=== PATIENT | male | born 1940 | race Caucasian/White ===

== ENCOUNTER → 2017-02-20 13:50 | Outpatient (CLI) | payer MEDICARE ==
[2016-09-10 09:28] VITALS: BMI 22.7
[~2017-02-20 13:50] MED LIST: ACETAMINOPHEN325 MG PO; ACETYLCYSTEINE; AMBIEN5 MG PO; ARTIFICIAL TEAR15 ML EACH EYE; ASCORBIC ACID500 MG PO; ATIVAN0.5 MG PO; ATIVAN2 MG/ML IM; ATROVENT 0.02%2.5 ML UPD; BACTROBAN 22 GM22 GM TP; BAYER CHEWABLE81 MG PO; BENADRYL INJ50 MG/ML IV; BENADRYL25 M1 PO; BOUDREAUXS113 GM TP; DEXTROSE 50%/WA50 M2 IV; FERROUS SULFAT325 MG PO; FLAGYL 500500 MG/100 PO; FLAGYL500 MG PO; FOLIC ACID1 MG PO; GABAPENTIN100 MG PO; GLUCAGEN1 MG/VIAL IM; GLUCAGEN1 MG/VIAL SC; HALDOL5 MG PO; HALDOL5 MG/ML IM; HUMALOG 30100 UNITS/ SC; IMODIUM2 MG PO; INDOCIN25 MG PO; INSTA-GLUCOSE31 GM PO; INVANZ1 G/VIAL IV; KLOR-CON 1010 MEQ PO; LASIX40 MG PO; LEVAQUIN 5500 MG/100 IV; LIDODERM 5 %1 PATCH TD; LISINOPRIL-HCTZ1 T13 PO; LISINOPRIL5 MG PO; LYRICA75 MG PO; MEGACE ES625 MG/5 M PO; MERREM 500 MG/500 MG IV; MILK OF MAGNESI30 ML PO; MIRALAX17 GM PO; MULTI-DAY VITAM1 TAB PO; MULTIPLE VITAMI1 TA1 PO; MYLANTA / MAALO30 ML PO; NAPROSYN500 MG PO; NIFEREX PO; NITROSTAT0.4 MG; NORCO 5/325 TAB1 TA1 PO; NUTRITIONAL SUPPLEMENT PO; NYSTATIN60 GM TP; OMEPRAZOLE20 M1 PO; PEPCID20 MG PO; PROTEIN LIQUID30 ML PO; PROTONIX I40 MG/VIAL IV; PROTONIX40 MG PO; QUESTRAN PACK4 G/PKT PO; REMERON15 MG PO; SALINE FLUSH10 ML IV; SILVASORB HYDRO45 GM TP; SYNTHROID100 MCG PO; SYNTHROID125 MCG PO; SYNTHROID150 MCG PO; TOPROL XL25 MG PO; TYLENOL325 MG PO; ULTRAM50 MG PO; VANCOMYCIN 750750 MG IV; VANCOMYCIN250 MG/51 PO; VITAMIN D2000 UNIT PO; ZESTORETIC 20/21 TAB PO; ZINC SULFATE 2220 MG PO; ZOFRAN4 MG PO; ZYLOPRIM100 MG PO
[2017-02-20 14:17] LABS: ANION GAP 22.9 mmol/L (8-16); CARBON DIOXIDE 16.1 mmol/L (21.0-32.0); CREATININE - SERUM 1.5 mg/dL (0.6-1.3)
== END | disposition home or self-care (01) ==
LOC: D.LABREF 13:50
PROVIDERS: Emergency Medicine
DX: R53.1 Weakness (principal); I11.9 Hypertensive heart disease without heart failure; I87.2 Venous insufficiency (chronic) (peripheral)

== ENCOUNTER → 2017-02-28 14:27 | Outpatient (CLI) | payer MEDICARE ==
[2016-09-10 09:28] VITALS: BMI 22.7
[2017-02-28 16:24] LABS: ANION GAP 17.9 mmol/L (8-16); CARBON DIOXIDE 20.2 mmol/L (21.0-32.0); POTASSIUM - SERUM 5.1 mmol/L (3.5-5.1)
== END | disposition home or self-care (01) ==
LOC: D.LABREF 14:27
PROVIDERS: Internal Medicine
DX: I50.22 Chronic systolic (congestive) heart failure (principal); N18.9 Chronic kidney disease, unspecified; I87.2 Venous insufficiency (chronic) (peripheral)

== ENCOUNTER 2017-03-24 14:37 | Inpatient (IN) | payer MEDICARE ==
[~2017-03-24] VITALS: Ht 172.7 cm; Wt 60.1 kg
[2017-03-24 16:17] LABS: BASOPHILS 0.2 % (0-2); EOSINOPHILS 0.8 % (0-7); HEMATOCRIT 37.3 % (42.0-54.0); HEMOGLOBIN 12.4 g/dL (13.5-17.5); IMMATURE GRANULOCYTES 0.2 % (0-5); LYMPHOCYTES 3.7 % (15-50); MCHC 33.2 g/dL (31.0-37.0); MCV 96.4 fL (80.0-100.0); MEAN PLATELET VOLUME 12.4 fL (7.4-10.4); MONOCYTES 7.6 % (2-11); NEUTROPHILS 87.5 % (40-80); PLATELET COUNT 137 10x3/uL (130-400); RBC 3.87 10x6/uL (4.20-6.10); RDW 15.9 % (11.5-14.5); WBC 11.3 10x3/uL (4.8-10.8)
[2017-03-24 16:26] LABS: ALBUMIN 3.5 g/dL (3.4-5.0); ANION GAP 14.7 mmol/L (8-16); BILIRUBIN - TOTAL 1.59 mg/dL (0.2-1.3); CALCIUM 9.3 mg/dL (8.5-10.1); CARBON DIOXIDE 28.4 mmol/L (21.0-32.0); CREATININE - SERUM 2.7 mg/dL (0.6-1.3); POTASSIUM - SERUM 4.1 mmol/L (3.5-5.1); PROTEIN - SERUM 7.2 g/dL (6.4-8.2)
[2017-03-24 19:00] VITALS: BP 116/52
--- NOTE | 2017-03-24 19:15 | NUR ---
RECEIVED REPORT, ASSUMED CARE OF PATIENT. ALERT/AWAKE ORIENTED X4. REQUESTED CHICKEN NOODLE SOUP AND APPLE JUICE. DID NOT WANT THE DINNER TRAY BROUGHT TO HIM. ASSESSMENTS SHOW IV IN R HAND OOZING BLOOD AND PART OF CATHETER EXPOSED. CLEANED OFF THE BLOOD AND REMOVED THE IV. PACEMAKER NOTED ON LEFT CHEST. PLACED TELEMETRY LEADS PER ORDER. SHOWS 88 PACED ON MONITOR. LG BRUISE ON LT HAND, BRUISE ON RT ARM. SCABS AND SORE ON BILATERAL LOWER LEGS. LARGEST ONE ON LEFT POSTERIOR LOWER LEG MEASURED APPROX. 5CM X 1 CM. DENIES PAIN. ORIENTED TO ROOM AND CALL LIGHT.
--- NOTE | 2017-03-24 22:30 | NUR ---
STAFF TOXICOLOGIST'S PRESENT IN ROOM GIVING A BATH.
[2017-03-24 23:06] VITALS: BP 129/60; BMI 19.9
--- NOTE | 2017-03-24 23:30 | NUR ---
WRAPPED BILATERAL LOWER LEGS WITH 4X4'S AND KERLIX PER PATIENT'S REQUEST AND TO PROTECT FROM SCRAPES.
[2017-03-25] VITALS: BP 117/41
--- NOTE | 2017-03-25 01:30 | NUR ---
RESITED IV IN LEFT FOREARM 22G. REQUESTED ANOTHER URINAL.
[2017-03-25 04:00] VITALS: BP 109/47
--- NOTE | 2017-03-25 05:10 | NUR ---
ADMIN SCHED PO MED WITH SIPS OF WATER. DENIES PAIN OR ANY NEEDS.
[2017-03-25] MEDS ORDERED: LIPITOR80 MG PO (06:27)
[2017-03-25] MEDS ORDERED: ASPIRIN81 MG PO (06:29)
[2017-03-25] MEDS ORDERED: ACETAMINOPHEN325 MG PO (06:29)
[2017-03-25 06:43] LABS: BASOPHILS 0.3 % (0-2); EOSINOPHILS 0.3 % (0-7); HEMATOCRIT 37.5 % (42.0-54.0); HEMOGLOBIN 12.2 g/dL (13.5-17.5); IMMATURE GRANULOCYTES 0.4 % (0-5); LYMPHOCYTES 4.4 % (15-50); MCH 32.5 pg (26.0-34.0); MCHC 32.5 g/dL (31.0-37.0); MEAN PLATELET VOLUME 12.3 fL (7.4-10.4); NEUTROPHILS 87.6 % (40-80); PLATELET COUNT 130 10x3/uL (130-400); RBC 3.75 10x6/uL (4.20-6.10); RDW 16.2 % (11.5-14.5); WBC 11.3 10x3/uL (4.8-10.8)
[2017-03-25 07:13] LABS: ALBUMIN 3.7 g/dL (3.4-5.0); ANION GAP 17.2 mmol/L (8-16); BILIRUBIN - TOTAL 1.88 mg/dL (0.2-1.3); CALCIUM 9.6 mg/dL (8.5-10.1); CARBON DIOXIDE 26.9 mmol/L (21.0-32.0); CREATININE - SERUM 2.7 mg/dL (0.6-1.3); POTASSIUM - SERUM 4.1 mmol/L (3.5-5.1); PROTEIN - SERUM 7.1 g/dL (6.4-8.2)
--- NOTE | 2017-03-25 07:30 | NUR ---
AM ROUNDS - PT RESTING QUIETLY, BREATHING UNLABORED AND EQUAL. BED IN LOWEST POSTION, CALL LIGHT IN REACH, DENIES OTHER NEEDS AT THIS TIME.
[2017-03-25 08:00] VITALS: BP 99/44
--- NOTE | 2017-03-25 09:43 | NUR ---
PT IS RESTING IN BED AND DENIES ANY CURRENT PAIN OR NEEDS. PTS HEAD NURSE IS LOUISA CONTI WHOM I AM THE PRECEPTOR OF, PT VERBALIZED THAT SHE HAS DONE EVERYTHING JUST FINE AND DENIES ANY COMPLAINTS OR NEEDS. WILL CTM OVER HER PATIENTS AND ASSIST IF NEEDED.
[2017-03-25 10:37] VITALS: Ht 172.7 cm; Wt 60.1 kg
[2017-03-25 12:00] VITALS: BP 96/48
[2017-03-25] MEDS ORDERED: SYNTHROID175 MCG PO (12:12)
--- NOTE | 2017-03-25 12:39 | NUR ---
PT RESTING QUIELTY, FAMILY PRESENT IN ROOM. BREATHING UNLABORED AND EQUAL, WILL CTM.
--- NOTE | 2017-03-25 13:30 | NUR ---
FAMILY AT BEDSIDE. BEDPAD CHANGED, EXCORIATION NOTED ON BUTTOCK, NO BREAKDOWN PRESENT. BRIEF PLACED ON PT PER FAMILY AND PT REQUEST. DENIES OTHER NEEDS AT THIS TIME. WILL CTM.
[2017-03-25 16:00] VITALS: BP 107/54
--- NOTE | 2017-03-25 18:25 | NUR ---
PT ASLEEP, BREATHING UNLABORED AND EQUAL. BED IN LOWEST POSTION, CALL LIGHT IN REACH, BEDSIDE TABLE IN REACH. WILL REPORT ON PT CONDITION FOR THE DAY.
[2017-03-25 19:00] VITALS: BP 116/57
--- NOTE | 2017-03-25 19:30 | NUR ---
ALERT/AWAKE TALKING ON PHONE. IV IN LEFT HAND INTACT WITH DOBUTAMINE INFUSING AT 9 ML/HR. IRON SETTER SHOWS [address] ST[address] DENIES ANY NEEDS. HAS CALL LIGHT AND BEDSIDE TABLE WITH PERSONAL ITEMS IN REACH.
--- NOTE | 2017-03-25 22:00 | NUR ---
ADMIN SCHED MEDS WITH SIPS OF WATER. APPLIED TRIPLE ANTIBIOTIC OINTMENT TO SCAB/SORES ON BOTH LEGS. APPLIED 4X4'S TO SORES AND WRAPPED WITH KERLIX PER PATIENT'S REQUEST. ADMIN TYLENOL 650 MG PO FOR C/O LEG PAIN LEVEL 6 ON NUMBER SCALE. LEFT DOOR PARTIALLY OPEN TO MONITOR CLOSELY.
[2017-03-26] VITALS (7 sets, daily range): BP systolic 99–127; BP diastolic 44–59
--- NOTE | 2017-03-26 04:46 | NUR ---
TURNED TO LEFT SIDE WITH PILLOW TO BACK. NO OTHER NEEDS VOICED.
[2017-03-26 05:28] LABS: BASOPHILS 0.2 % (0-2); EOSINOPHILS 1.4 % (0-7); HEMATOCRIT 32.2 % (42.0-54.0); HEMOGLOBIN 10.8 g/dL (13.5-17.5); IMMATURE GRANULOCYTES 0.2 % (0-5); LYMPHOCYTES 4.9 % (15-50); MCH 32.1 pg (26.0-34.0); MCHC 33.5 g/dL (31.0-37.0); MEAN PLATELET VOLUME 11.4 fL (7.4-10.4); NEUTROPHILS 85.3 % (40-80); PLATELET COUNT 125 10x3/uL (130-400); RBC 3.36 10x6/uL (4.20-6.10); RDW 15.6 % (11.5-14.5); WBC 8.9 10x3/uL (4.8-10.8)
[2017-03-26 05:36] LABS: MCV 95.8 fL (80.0-100.0)
[2017-03-26 05:46] LABS: ALBUMIN 3.2 g/dL (3.4-5.0); ANION GAP 13.7 mmol/L (8-16); BILIRUBIN - TOTAL 1.54 mg/dL (0.2-1.3); CALCIUM 9.6 mg/dL (8.5-10.1); CARBON DIOXIDE 27.6 mmol/L (21.0-32.0); CREATININE - SERUM 2.4 mg/dL (0.6-1.3); POTASSIUM - SERUM 4.3 mmol/L (3.5-5.1); PROTEIN - SERUM 6.7 g/dL (6.4-8.2)
--- NOTE | 2017-03-26 07:44 | NUR ---
PT RECIEVING BREATHING TX, DENIES NEEDS AT THIS TIME. BREATHING UNLABORED AND EQUAL. BED IN LOWEST POSTION, CALL LIGHT IN REACH, WILL CTM.
--- NOTE | 2017-03-26 11:52 | NUR ---
PT INCONTINENT OF URINE. EXPRESS DISATISFACTION WITH CARE AND STATES "WE DON'T KNOW WHAT WE ARE DOING." EXPLAINED TO PT THAT WE ARE GIVING HIM THE BEST CARE POSSIBLE AND EXPLAINED RATIONALES FOR CARE. BED PAD CHANGED, TEO CREAM APPLIED TO EXORIATED BUTTOCK AND PT TURNED. WILL CTM.
--- NOTE | 2017-03-26 16:13 | NUR ---
PT REPORTS NOT HAVING URINATING SINCE INCONTINENCE EPISODE THIS MORNING. BLADDER SCAN SHOWED 396 MLS IN THE BLADDER. CONSULTED DR. ORO AND GAVE VERBAL ORDER TO INSERT HO CATHETER. WILL CTM.
--- NOTE | 2017-03-26 16:55 | NUR ---
INSERTED HO CATHETER, MAINTAINED STERILE PROCEDURE. PT OUTPUT 250 MLS IMMEDIATLEY AFTER CATHETER INSERTED INTO BLADDER. PT REPORTS RELIEF AFTER INSERTION. URINE IS STRAW COLORED AND CLEAR. STAT LOCK APPLIED TO LEG. WILL CTM.
--- NOTE | 2017-03-26 17:41 | NUR ---
PT REFUSES SCDS R/T VENOUS STASIS ULCERS ON LEGS BILAT.
--- NOTE | 2017-03-26 19:00 | NUR ---
INITIAL ROUNDS MADE. PT SITTING UP IN BED WATCHING TV. PT DENIES NEEDS OR C/O AT THIS TIME EXCEPT REQUESTING ICE WATER. GIVEN REQUESTED. CALL LIGHT IN REACH. WILL CONT TO MONITOR.
--- NOTE | 2017-03-26 21:25 | NUR ---
HS MEDS GIVEN WITHOUT DIFFICULTY. REFUSES THE NEOSPORIN ON LOWER EXTREM AT THIS TIME. WILL ATTEMPT AGAIN LATER. CALL LIGHT IN REACH. WILL CONT TO MONITOR.
[2017-03-27 04:00] VITALS: BP 107/51
[2017-03-27 05:09] LABS: BASOPHILS 0.3 % (0-2); EOSINOPHILS 2.4 % (0-7); HEMATOCRIT 31.8 % (42.0-54.0); HEMOGLOBIN 10.6 g/dL (13.5-17.5); IMMATURE GRANULOCYTES 0.1 % (0-5); LYMPHOCYTES 7.6 % (15-50); MCH 31.9 pg (26.0-34.0); MCHC 33.3 g/dL (31.0-37.0); MCV 95.8 fL (80.0-100.0); MEAN PLATELET VOLUME 11.2 fL (7.4-10.4); MONOCYTES 6.7 % (2-11); NEUTROPHILS 82.9 % (40-80); PLATELET COUNT 137 10x3/uL (130-400); RBC 3.32 10x6/uL (4.20-6.10); RDW 15.6 % (11.5-14.5); WBC 7.9 10x3/uL (4.8-10.8)
[2017-03-27 05:34] LABS: ALBUMIN 3.2 g/dL (3.4-5.0); ANION GAP 15.2 mmol/L (8-16); BILIRUBIN - TOTAL 1.5 mg/dL (0.2-1.3); CALCIUM 9.2 mg/dL (8.5-10.1); CARBON DIOXIDE 26.6 mmol/L (21.0-32.0); CREATININE - SERUM 2.2 mg/dL (0.6-1.3); POTASSIUM - SERUM 4.8 mmol/L (3.5-5.1); PROTEIN - SERUM 6.5 g/dL (6.4-8.2)
--- NOTE | 2017-03-27 07:54 | NUR ---
0730-AM ROUNDING DONE WITH PATIENT REPORTING THAT HE HAS NOT SLEPT WELL LAST NIGHT. ON HEART MONITOR SHOWING PACED, HR 80. LEFT HAND SEEN WITH DOBUTREX DRIP AT 9 CC/HR. HO CATH EMPTIED WITH 900 CC LIGHT RED TINGED URINE. BILATERAL LOWER LEGS SEEN WRAPPED WITH ANA. BILATERAL PULSE FELT. ON EP, LAB VALUES ARE WNL. ON ROOM AIR.
[2017-03-27 08:21] VITALS: BP 114/49
--- NOTE | 2017-03-27 09:09 | NUR ---
0755-CLEANED UP FROM INCONT. OF STOOL. THERE IS SOME RED MOSITURE DERMATITIS AREAS (?) SEEN AROUND THE RECTUM. SKIN LOOKS GOOD OTHERWISE, CALMOSEPTINE APPLIED LIBERALLY TO RECTUM AND BUTTOCK.
--- NOTE | 2017-03-27 09:29 | NUR ---
COMPLETE BATH AND LINEN CHANGE DONE BY KRYSTEN GAVIRIA.
--- NOTE | 2017-03-27 12:03 | NUR ---
PRINTING PRESS OPERATOR APPRENTICE WENT TO TURN PT AND HE REFUSED DUE TO IT BEING LUNCH. PT ALSO REFUSED TO HAVE HIS HEELS BRIDGED.
[2017-03-27 12:18] VITALS: BP 94/41
--- NOTE | 2017-03-27 12:24 | NUR ---
ASKED PATIENT IF I COULD GO AHEAD AND CHANGE HIS LEG DRESSINGS IF HE WAS DONE EATING HIS LUNCH. HE REPLIED THAT HE FELT A LITTLE NAUSEATED. I ASKED HIM IF I COULD GET HIM SOMETHING FOR HIS NAUSEA AND HE REPLIED "NOT RIGHT NOW" I ASKED THAT HE BE CAREFUL WITH EATING HIS ORANGE SHERBERT THEN. HE SAID THAT "BEFORE YOU CHANGE MY LEG DRESSINGS YOU NEED TO CHANGE ME" I ASKED HIM IF HE WAS DIRTY OR HAD AN ACCIDENT. HE REPLIED "I HAVE BEEN FOR A AWHILE, THAT IS WHAT YOU GUYS WANT ME TO DO IS LAY IN IT." I INFORMED HIM THAT IS NOT WHAT WE WANT, THAT HE IS TO CALL US EACH TIME HE GOES SO THAT HE MAY BE CHANGED. HE SAID THAT HE WOULD CALL ME IF NEEDED. I ASKED KRYSTEN GAVIRIA IF HE HAS SAID ANYTHING TO HER AND SHE REPLIED THAT SHE HAS ASKED HIM SEVERAL TIMES IF HE NEEDED ANYTHING AND HE REPLIED NO.
--- NOTE | 2017-03-27 12:50 | NUR ---
KHADRA AND MYSELF TO CLEAN PATIENT, SMALL AMOUNT OF STOOL. POSITIONS TO RIGHT SIDE, REFUSES TO HAVE PILLOW TO BRIDGE FEET, THERE IS ONE UNDER HIS BACK.
--- NOTE | 2017-03-27 12:52 | NUR ---
Nutrition follow-up: Diet: Low sodium mechancial soft with thin liquids; pt with no teeth or dentures. PO intake ~50% of meals Labs reviewed +BM Will provide food choices with selective menus and honor food preferences within diet restrictions. RDN following.
--- NOTE | 2017-03-27 12:53 | NUR ---
WENT WITH KHADRA TO HAVE HER HELP CHANGE THE LEG DRESSING AND HIS IV DRESSING AND HE REFUSES AT THIS TIME. STILL WITH COMPLAINT OF SLIGHT NAUSEA AND REFUSES FOR ME TO GIVE HIM NAUSEA MEDICATION. FEMALE MEMBER IN WHEELCHAIR COMES TO ROOM AND TELLS THE PATIENT TO HAVE THEM DONE "RIGHT NOW". I TOLD THE LADY THAT IT WAS THE PATIENT'S CHOICE TO HAVE THEM DONE NOW OR LATER. AGAIN, I ASKED THE PATIENT IF I COULD CHANGE THEM AND HE REFUSED. I TOLD HIM THAT I COULD TRY AGAIN LATER AND THE LADY THANKED ME.
--- NOTE | 2017-03-27 13:34 | NUR ---
MAKING ROUNDS I ASKED PATIENT IF HE IS READY FOR ME TO DO HIS LEGS DRESSIGNS. HE REPLIED, "YOU JUST DO WHAT YOU WANT TO DO". AGAIN, I INFORMED THE PATIENT THAT IT WAS UP TO HIM WHEN I CAN DO THE DRESSINGS. I TOLD HIM TO PLEASE LET ME KNOW WHEN HE WAS READY. I WAS LEAVING THE ROOM I HEARD HIM TELL HIS , "GOD DAMN WHY THEY CAN'T LEAVE ME ALONE".
--- NOTE | 2017-03-27 14:06 | NUR ---
FAN PLACED IN ROOM AND HEELS ARE BRIDGED. AT BEDSIDE, STILL REFUSES TO HAVE LEG DRESSINGS DONE.
--- NOTE | 2017-03-27 15:37 | NUR ---
WOUND CARE CONSULT: NOTED MULTIPLE SCABS TO BLE. CURRENT TX HAS BEEN NEOSPORIN OINTMENT TO SCABS AND COVER WITH 4X4S AND KERLIX. 3XWEEKLY. RECTUM HAS MOISTURE ASSOCIATED REDNESS. CALMOSEPTINE CREAM IS BEING APPLIED. ENCOURAGED TO TURN EVERY 2 HOURS. WILL CONTINUE TO MONITOR.
[2017-03-27 16:59] VITALS: BP 93/53
--- NOTE | 2017-03-27 18:54 | NUR ---
ASSESSMENT COMPANGELAE, A&O. RESPERATIONS EVEN ON RA. PT STATED THAT HE DOESNT WANT ANY MORE UPDRAFTS AND THAT HE ALREADY NOTIFEID THE RESP TECH. IV TO LEFT HAND WITH DOBUTREX INUSING AT 9 CC/HR. SITE CLEAN AND DRY, PT DENIES NEEDS AT THIS TIME. BED LOW, CL IN REACH.
--- NOTE | 2017-03-27 20:16 | NUR ---
DECORATING EQUIPMENT SETTER AT BED SIDE, PT INCONTIENET OF BOWEL. PT CLEANED, LINENS CHANGED, CALMOSEPTINE APPLIED TO BUTTOCKS.
[2017-03-27 21:16] VITALS: BP 104/60
--- NOTE | 2017-03-27 22:37 | NUR ---
HS MEDS GIVEN WITH FRESH ICE WATER. PT DENIES PAIN, NO OTHER NEEDS AT THIS TIME EXPRESSED.
[2017-03-27 23:55] VITALS: BP 101/43
--- NOTE | 2017-03-28 00:41 | NUR ---
SENIOR BOOKKEEPER AT BEDSIDE FOR VS. NEEDS ADDRESSED AT THIS TIME. CALL LIGHT IN REACH. WILL CONT TO MONITOR.
--- NOTE | 2017-03-28 02:25 | NUR ---
RESTING WITH EYES CLOSED, RESPERATIONS EVEN, NO S/S DISTRESS NOTED.
[2017-03-28 03:56] VITALS: BP 104/58
--- NOTE | 2017-03-28 05:50 | NUR ---
REPOSITIONED IN BED FOR COMFORT. CL IN REACH.
[2017-03-28 06:27] LABS: BASOPHILS 0.4 % (0-2); HEMATOCRIT 32.4 % (42.0-54.0); HEMOGLOBIN 10.8 g/dL (13.5-17.5); IMMATURE GRANULOCYTES 0.3 % (0-5); LYMPHOCYTES 5.7 % (15-50); MCH 32.2 pg (26.0-34.0); MCHC 33.3 g/dL (31.0-37.0); MCV 96.7 fL (80.0-100.0); MEAN PLATELET VOLUME 11.3 fL (7.4-10.4); MONOCYTES 9.4 % (2-11); NEUTROPHILS 81.2 % (40-80); PLATELET COUNT 135 10x3/uL (130-400); RBC 3.35 10x6/uL (4.20-6.10); RDW 15.9 % (11.5-14.5); WBC 7.4 10x3/uL (4.8-10.8)
[2017-03-28 06:53] LABS: ALBUMIN 3.2 g/dL (3.4-5.0); ANION GAP 15.9 mmol/L (8-16); BILIRUBIN - TOTAL 1.62 mg/dL (0.2-1.3); CALCIUM 9.4 mg/dL (8.5-10.1); CREATININE - SERUM 2.4 mg/dL (0.6-1.3); POTASSIUM - SERUM 4.9 mmol/L (3.5-5.1); PROTEIN - SERUM 6.4 g/dL (6.4-8.2)
[2017-03-28 08:00] VITALS: BP 103/40
--- NOTE | 2017-03-28 09:00 | NUR ---
ALERT AND ORIENTED X4. DEMANDING TO BE PUT IN WHEELCHAIR. REFUSES PHYSICAL THERAPY EVERY TIME. EXPLAIN TO PATIENT STAFF IS UNABLE TO ASSIST OUT OF BED UNTIL SEEN BY PHYSICAL THERAPY. PHYSICAL THERAPY ASSIST OUT OF BED TO CHAIR. OPTOMETRIC COORDINATOR ASSIST WITH BATHING AND SHAVING. LINEN CHANGE COMPLETE. CHAIR LOCKED. PACED 72bpm ON TELEMETRY.
[2017-03-28 11:56] VITALS: BP 91/39
--- NOTE | 2017-03-28 12:00 | NUR ---
ALERT AND ORIENTED X4. CULINARY DIRECTOR ASSIST PULLING UP IN BED AND PREPARE LUNCH TRAY. REFUSE TO EAT.ENCOURAGE TO EAT FOR HEALING. STILL REFUSES TO EAT. PACED AT 78bpm ON TELEMETRY. DENIES ANY NEEDS. BED LOCKED AND LOW. CALL LIGHT IN REACH. TWO SIDERAILS UP.
--- NOTE | 2017-03-28 13:26 | NUR ---
ARRIVE TO ROOM. YELLING AT STAFF BECAUSE FOOD WAS COLD. EXPLAIN TO SPOUSE PATIENT WAS PULLED UP IN BED AND TRAY PREPARED BUT PATIENT REFUSED. SPOUSE STARTS THREATENING TO TAKE PATIENT AMA. NEW TRAY ORDERED. INFORM OF SITUATION.
--- NOTE | 2017-03-28 14:37 | NUR ---
1436-CALLED AND SPOKE TO BARBIE AT DR BLAIR OFFICE TO HAVE WES [facility] APN TO CALL ME R/T DISCHARGING PATIENT AND DORUTH FISHER. AWAITING CALL BACK. 1437-PAGE INTO [facility]ER[facility] WHITE APN FOR DISCHARGE ORDERS. AWAITING CALL BACK.
--- NOTE | 2017-03-28 14:39 | NUR ---
Patient Name: NICHOL GROSS Admission Status: ER Accout number: [id number] Admission Date: 03-24-2017 : 1940 Admission Diagnosis: Attending: MIKAEL Current LOS: 4 Anticipated DC Date: 03-28-2017 Planned Disposition: Home with HOSPICE PLANNED EXTERNAL PROVIDER: [facility] Discharge Planning Comments: * Is the patient Alert and Oriented? Yes 0 * How many steps to enter\\exit or inside your home? NONE 0 * PCP DR. TRAY GANDHI 0 * Pharmacy [facility] ON [address] 0 * Preadmission Environment Home with Family 0 * ADLs Partial Dependent 0 * Partial ADLs (Assistance needed) Transfers 0 * Equipment [facility] Shower Chair Wheelchair 0 * Other Equipment [facility] - MEDICAL EQUIPMENT PROVIDER 0 * List name and contact numbers for known caregivers / representatives who currently or will assist patient after discharge: SHIRA CONTRERAS, GIRLFRIEND, 0 * Community resources currently utilized Home Health 0 * Please name any agencies selected above. [facility] 0 * Additional services required to return to the preadmission environment? Yes * Can the patient safely return to the preadmission environment? Yes 0 * Has this patient been hospitalized within the prior 30 days at any hospital? Yes 0 CM RECEIVED ORDER FOR REHAB PLACEMENT. MET WITH PT AND HIS GIRLFRIEND IN ROOM TO DISCUSS DISCHARGE PLANNING AND NEEDS. PT REPORTS LIVING AT HOME WITH ASSISTANCE OF HIS GIRLFRIEND FOR TRANSFERS WHEN HE IS WEAK. PT'S GIRLFRIEND VERY UPSET, ASKED CM IF CM NEEDED TO SEE HER UNDERWEAR AND IT IS WHITE. CM EXPLAINED CM ROLE IN DISCHARGE PLANNING. PT AND GIRLFRIEND AGREED TO CONTINUE BUT WANT CM TO HURRY UP PT IS READY TO LEAVE NOW. PT HAS HOME HEALTH WITH [facility]. PT REPORTS HAVING ALL MEDICAL EQUIOPMENT EXCEPT FOR BEDSIDE COMMODE AND HE WANTS ONE TO PUT OVER THE TOILET TO ASSIST WITH GETTING UP AND DOWN. PT STATES "HELL NO, NO AND NO" IN REGARDS TO ANY KIND OF REHAB. PT REPORTS HE IS GOING HOME NOW EITHER BY DISCHARGE OR AMA. PT'S GIRLFRIEND REPORTS THE PREACHER OR A TAXI WILL TAKE PT HOME. CM DISCUSSED AVAILABILITY OF HOME HEALTH, REHAB SERVICES AND MEDICAL EQUIPMENT. PT REPORTS WANTING A BEDSIDE COMMODE FROM [employer] AND [employer] [facility] TO RESUME. IMPORTANT MESSAGE FROM MEDICARE PROVIDED AND EXPLAINED. CM DISCUSSED DR. ZAYAS'S COMMENTS REGARDING HOSPICE. PT'S GIRLFRIEND REPORT THEY ARE THINKING OF HOSPICE AND WANT INFORMATION AND WILL CALL THEM WHEN THEY GET HOME. CM PROVIDED HOSPICE LISTING AND AVAILABLE BROCHURES. CM NOTIFIED DR. PARIS AND BEDSIDE NURSE OF PT'S DESIRE TO LEAVE NOW. CM NOTIFIED PT AND GIRLFRIEND THAT DR. PARIS WILL BE HERE IN A FEW MINUTES. AFTER MEETING WITH DR. PARIS, CM NOTIFED THAT PT WANTS HOME HOSPICE. CM SPOKE TO PT AND GIRLFRIEND IN ROOM, THEY AGREE FOR HOME HOSPICE AND WILL WAIT HERE FOR THE EVALUATION, PT & GIRLFRIEND CHOSE [facility]. CM CALLED [facility], , PROVIDED REFERRAL TO MARISSA, FAXED REFERRAL TO [facility] AT [phone]. CM WAITING FOR HOSPICE EVALUATION, ACCEPTANCE AND HOME ARRANGEMENTS FOR PT'S DISCHARGE HOME TODAY. Tierce Filler: Mike Faulkner
--- NOTE | 2017-03-28 15:16 | NUR ---
CALLED DR BLAIR OFFICE AGAIN R/T POSSIBLE DISCHARGE ON PATIENT. SPOKE WITH MARISSA AND WAS TOLD THAT "THE NOTE IS STILL BACK THERE FOR WES AND SHE IS STILL WITH PATIENT'S".
--- NOTE | 2017-03-28 15:58 | NUR ---
NEW ORDERS RECEIVED PER DR BLAIR.
--- NOTE | 2017-03-28 16:33 | NUR ---
ALERT AND ORIENTED X4. SPOUSE AT BEDSIDE. DISCHARGE ORDERS FOR HOME HOSPICE. DISCHARGE PAPERS SIGNED ON CHART. REFUSE TO LEFT HO IN. DC HO BULB INTACT. DC LT WRIST IV TIP INTACT. ASSIST GETTING DRESSED. ASSIST TO CAB VIA WHEELCHAIR. REMAINS FREE FROM INJURY.
--- NOTE | 2017-03-29 13:54 | EC ---
PATIENT:NICHOL GROSS JR DATE OF SERVICE: 03/24/17 SEX: M MEDICAL RECORD: [id number] DATE OF : [birth year] LOCATION:D. D.213 AGE OF PATIENT: 76 ADMISSION DATE: 03/24/17 REFERRING PHYSICIAN: INTERPRETING PHYSICIAN: SERGE GRIFFITH M.D. ECHOCARDIOGRAM REPORT ECHO CHARGES 5 ECHO LIMITED CLINICAL DIAGNOSIS: CHF ECHOCARDIOGRAPHIC MEASUREMENTS (adult normal given) AC root (d.<3.7cm) LV Septum d (<1.2 cm> Valve Excursion LV Septum (systole) Left Atria (s.<4.0cm> 4.4 LVPW d(<1.2cm) RV (d.<2.3cm) 4.3 LVPW (sytole) LV diastole(<5.6CM) 5.8 MV E-F(>70mm/sec) LV systole 4.7 LVOT Diameter 1.1 MV exc.(>10mm) Est.ejection fraction (50-75%) Pericardial Effusion N DOPPLER: LVIT A 47.0 E 147 LA RVSP 84 LVOT 280 AOP1/2T 284 Asc. Ao 458 RVOT RA PA AV Gradient Peak 83.74 AV Mean 57.02 AV Area 0.8 MV Gradient Peak 12.78 MV Mean 3.48 MV Area COMMENTS: Reel Blade Bender Furnace Tender: Ayana WRAY Nailing Machine Operator:Ayana Griffith TAPE# PACS DATE OF SERVICE: 03/26/2017 REFERRING PHYSICIAN: Myron Wagner MD. INDICATION: Congestive heart failure. DESCRIPTION: Left ventricle is mildly dilated. Systolic function appears preserved and estimated ejection fraction is in the order 50%. Mitral valve leaflets are thickened. There is mild regurgitation seen. Left atrium is mildly dilated. The aortic valve leaflets are heavily calcified. Peak gradient ECHOCARDIOGRAM REPORT [id number] NICHOL GROSS JR across the valve is 82 mmHg with a mean of 57 mmHg. There is mild insufficiency noted as well. Valve area was calculated at 0.8 cm-squared. Right ventricle is mildly dilated. Tricuspid valve is structurally normal. There is moderate to severe regurgitation seen. Right ventricular systolic pressure is measured at 84 mmHg. There is no pericardial effusion noted. IMPRESSION: 1. Mildly elevated left ventricle with preserved ejection fraction of 50%. 2. Mild mitral regurgitation. 3. Severe aortic stenosis by gradient with mild insufficiency. 4. Ddcumjte-uf-gyvgef tricuspid regurgitation with pulmonary hypertension. TRANSINT:[id number] Voice Confirmation ID: [id number] DOCUMENT ID: [id number] SERGE GRIFFITH M.D. at 1354 CC: [id number] DICTATION DATE: 03/26/17 1525 BOW TACKER: 03/26/17 1758 DIS IN 03/28/17 [place] [id number] [place] [id number]
== END 2017-03-28 18:07 | disposition home health service (06) | DRG 291 ==
LOC: D.ER 14:37 → D.M2 16:42
PROVIDERS: Nurse Practitioner Acute Care; ADMIT Family Medicine
DX: I13.0 Hypertensive heart and chronic kidney disease with heart failure and stage 1 through stage 4 chronic kidney disease, or unspecified chronic kidney disease (principal); I50.31 Acute diastolic (congestive) heart failure; N18.4 Chronic kidney disease, stage 4 (severe); N17.9 Acute kidney failure, unspecified; E87.1 Hypo-osmolality and hyponatremia; E11.22 Type 2 diabetes mellitus with diabetic chronic kidney disease; I35.0 Nonrheumatic aortic (valve) stenosis; L89.159 Pressure ulcer of sacral region, unspecified stage; E78.5 Hyperlipidemia, unspecified; E03.9 Hypothyroidism, unspecified; Z95.0 Presence of cardiac pacemaker; G89.4 Chronic pain syndrome; I42.9 Cardiomyopathy, unspecified

== ENCOUNTER 2017-04-04 13:19 | Observation (INO) | payer MEDICARE ==
[~2017-04-04] VITALS: Ht 172.7 cm; Wt 59.0 kg
[~2017-04-04 13:19] MED LIST changes: +ASPIRIN81 MG PO; +LIPITOR80 MG PO; +SYNTHROID175 MCG PO
[2017-04-04 19:23] LABS: BASOPHILS 0.1 % (0-2); EOSINOPHILS 0.3 % (0-7); HEMATOCRIT 35.5 % (42.0-54.0); HEMOGLOBIN 11.8 g/dL (13.5-17.5); IMMATURE GRANULOCYTES 0.2 % (0-5); LYMPHOCYTES 6.6 % (15-50); MCHC 33.2 g/dL (31.0-37.0); MCV 99.2 fL (80.0-100.0); MEAN PLATELET VOLUME 10.9 fL (7.4-10.4); MONOCYTES 12.1 % (2-11); NEUTROPHILS 80.7 % (40-80); PLATELET COUNT 189 10x3/uL (130-400); RBC 3.58 10x6/uL (4.20-6.10); RDW 16.5 % (11.5-14.5); WBC 8.7 10x3/uL (4.8-10.8)
[2017-04-04 19:46] LABS: ALBUMIN 3.4 g/dL (3.4-5.0); ANION GAP 18.3 mmol/L (8-16); BILIRUBIN - TOTAL 1.75 mg/dL (0.2-1.3); CALCIUM 9.4 mg/dL (8.5-10.1); CARBON DIOXIDE 24.6 mmol/L (21.0-32.0); CREATININE - SERUM 4.4 mg/dL (0.6-1.3); POTASSIUM - SERUM 4.9 mmol/L (3.5-5.1); PROTEIN - SERUM 6.6 g/dL (6.4-8.2)
[2017-04-04 19:47] LABS: TROPONIN-I 0.05 ng/mL (0.000-0.060)
[2017-04-04 21:41] VITALS: BP 108/40
--- NOTE | 2017-04-04 22:00 | NUR ---
REC FROM ER VIA STRETCHER. ORIENTED TO NAME, PLACE, SITUATION. IV IN L FA INTACT SL. STARTED NS AT 50ML/HR ORDERED. VS TAKEN AND STABLE. ORIENTED TO CALL LIGHT FOR ANY NEEDS. REQUESTED APPLEJUICE.
--- NOTE | 2017-04-04 22:00 | NUR ---
INSIDE WIREMAN CHANGED FOR INCONTINENCE OF URINE. TURNS HIMSELF TO ASSIST.
--- NOTE | 2017-04-04 22:30 | NUR ---
REQUESTED HIS CELL PHONE WHICH I COULD NOT FIND IN BED/ROOM. CALLED ER AND WAS INFORMED IT WAS PLACED ON HIS LAP WHEN TRANSFERRED TO [facility]. I CHECKED HIS BED AGAIN, THE LAUNDRY BAG ANASTASIA HAD USED WHEN CHANGING HIS GOWN AND THE LAUNDRY BAG BINITROTOLUENE OPERATOR HAD PUT BLANKETS INTO FROM THE STRETCHER. CALLED HIS CELL PHONE AND COULD NOT HEAR IT RINGING.
[2017-04-04] MEDS ORDERED: FERROUS SULFAT325 MG PO (23:24)
[2017-04-04] MEDS ORDERED: ZOLOFT25 MG PO (23:25)
[2017-04-04] MEDS ORDERED: OMEPRAZOLE20 M1 PO (23:26)
[2017-04-04] MEDS ORDERED: ZOFRAN4 MG PO (23:27)
[2017-04-04] MEDS ORDERED: ULTRAM50 MG PO (23:28)
[2017-04-05 01:03] VITALS: BP 109/35
--- NOTE | 2017-04-05 02:30 | NUR ---
CLEANED FOR INCONTINENCE OF URINE. CHANGED PAD AND GOWN.
[2017-04-05 05:23] VITALS: BP 108/40; BMI 19.8
[2017-04-05 05:36] VITALS: BP 112/38
[2017-04-05 06:27] LABS: BASOPHILS 0.3 % (0-2); EOSINOPHILS 0.8 % (0-7); HEMATOCRIT 35.8 % (42.0-54.0); IMMATURE GRANULOCYTES 0.3 % (0-5); LYMPHOCYTES 5.4 % (15-50); MCH 32.8 pg (26.0-34.0); MCHC 33.5 g/dL (31.0-37.0); MCV 97.8 fL (80.0-100.0); NEUTROPHILS 82.2 % (40-80); PLATELET COUNT 194 10x3/uL (130-400); RBC 3.66 10x6/uL (4.20-6.10); RDW 16.6 % (11.5-14.5); WBC 7.7 10x3/uL (4.8-10.8)
[2017-04-05 06:49] LABS: ANION GAP 19.6 mmol/L (8-16); CALCIUM 9.1 mg/dL (8.5-10.1); CREATININE - SERUM 4.3 mg/dL (0.6-1.3); POTASSIUM - SERUM 4.6 mmol/L (3.5-5.1)
[2017-04-05 08:00] VITALS: BP 114/37
--- NOTE | 2017-04-05 09:02 | NUR ---
RECEIVED CALL FROM SAUNDRA KWAN PT'S SISTER FROM [place] STATED THAT LADY THAT TAKES CARE OF PT WILL NOT GIVE THEM ANY INFOMATION REGARDING PT'S HEALTH, GAVE PHONE NUMBERS WHERE SHE CAN BE CONTACT REGARDING PT'S HEALTH. - [phone] [facility]- [phone].
--- NOTE | 2017-04-05 09:57 | NUR ---
ADMINISTERED MORNING MEDS, PT HAD NO TROUBLE SWALLOWING. PT IN BED, DENIES ANY NEEDS AT THIS TIME. CALL LIGHT IN REACH, BED ALARM ON, NAD NOTED, WILL CONTINUE TO MONITOR.
--- NOTE | 2017-04-05 10:43 | NUR ---
Patient Name: NICHOL GROSS Admission Status: ER Accout number: [id number] Admission Date: 04-04-2017 : 1940 Admission Diagnosis: Attending: ARLETTE Current LOS: 1 Anticipated DC Date: 04-05-2017 Planned Disposition: Nursing Facility [facility] Cert Primary Insurance: MEDICARE A & B PLANNED EXTERNAL PROVIDER: [facility], [facility] MEDICAID BED Discharge Planning Comments: * Is the patient Alert and Oriented? Yes 0 * How many steps to enter\exit or inside your home? NONE 0 * PCP DR. SANTAMARIA - [facility] 0 * Pharmacy [facility] 0 * Preadmission Environment Home Alone 0 * Equipment Shower Chair Walker Wheelchair 0 * Other Equipment NO MEDICAL EQUIPMENT PROVIDER PREFERENCE 0 * List name and contact numbers for known caregivers / representatives who currently or will assist patient after discharge: SHIRA LOWRY, HEATHER, 0 * Community resources currently utilized Hospice Home 0 * Please name any agencies selected above. [facility], 0 * Additional services required to return to the preadmission environment? Yes * Can the patient safely return to the preadmission environment? No 0 * Has this patient been hospitalized within the prior 30 days at any hospital? Yes 0 CM RECEIVED ORDER FOR PLACEMENT, CM CALLED [facility], , SPOKE TO ROSE MARIE WHO WAS NOT AWARE THAT PT WAS STILL IN THE HOSPITAL; CM NOTIFIED OF ROOM NUMBER, ASKED IF THEY WERE GOING TO HELP WITH PLACEMENT TODAY. ANITA SUGGESTED THAT CM TRY FOR [facility] THEY CONTRACT WITH THOSE LOCAL FACILITIES. CM CALLED [facility], , WHO REPORTS THAT AMBROSE RANKIN OF [facility] IS PT'S KINDERGARTEN TEACHER ASSISTANT AND THAT THERE IS NO HOLD ON PATIENT BY [facility], PT IS ABLE TO MAKE DECISIONS FOR HIMSELF AND APS WANTS TO BE NOTIFIED OF PT'S PLACEMENT WHEN FOUND. CM MET WITH PT IN ROOM TO DISCUSS DISCHARGE PLANNING AND NEEDS. PT REPORTS LIVING AT HOME INDEPENDENTLY AND ALONE UNTIL NOW. PT REPORTS HE IS NOT ABLE TO TAKE CARE OF HIMSELF BUT DID NOT WANT [facility] IN HALF-WAY. PT DENIES HAVING FAMILY OR FRIENDS TO HELP HIM AT HOME. PT WOULD LIKE TO CONTINUE WITH [facility], REPORTS THEY WERE NO HELP TO HIM AT HOME. WITH HER 16 YEAR OLD DAUGHTER. PT HAS SHOWER CHAIR, WALKER AND WHEELCHAIR AT HOME. PT DENIES HAVING ANY ASSETS, REPORTS INCOME OF SOCIAL SECURITY OF $1,900 PER MONTH. CM DISCUSSED HOSPICE RECOMMENDATIONS FOR PLACEMENT, PT IN AGREEMENT WITH PLACEMENT WITH [facility]; CHOICE SIGNED FOR [facility] AND [facility]. CM CALLED [facility], [facility], , FOR BOTH [facility] AND [facility]. NOTIFIED OF REFERRAL; [facility] REPORTS THEY WILL HAVE TO FILE FOR [facility] MEDICAID FOR PT. CM FAXED REFERRAL TO [facility] FOR BOTH FACILITIES AT [phone]. CM WAITING ADMISSION DETERMINATIONS FROM [facility]. Behavioral Health Aide: Mike Faulkner
[2017-04-05 11:32] LABS: APPEARANCE CLEAR (CLEAR); COLOR YELLOW (YELLOW)
[2017-04-05 11:33] LABS: BILIRUBIN NEGATIVE (NEGATIVE); GLUCOSE NEGATIVE (NEGATIVE); KETONE NEGATIVE (NEGATIVE); LEUKOCYTE ESTERASE NEGATIVE (NEGATIVE); NITRITE NEGATIVE (NEGATIVE); PROTEIN NEGATIVE (NEGATIVE); SPECIFIC GRAVITY 1.015 (1.005-1.020); UROBILINOGEN NORMAL (NORMAL)
[2017-04-05 11:42] LABS: PRO/CRE RATIO URINE 0.3 mg/g; PROTEIN - URINE 20.1 mg/dL (0.0-11.9)
[2017-04-05 12:00] VITALS: BP 110/42
[2017-04-05 13:49] VITALS: Ht 172.7 cm; Wt 59.0 kg
--- NOTE | 2017-04-05 13:49 | NUR ---
CALLED PHARMACY AND SPOKE WITH DARIANA, INFORMED HIM THAT I NEED ZITHROMAX, HE STATED THAT HE WOULD CHECK ON IT.
--- NOTE | 2017-04-05 15:14 | NUR ---
HUNG IVPB ROCEPHIN AT THIS TIME. PT IN BED, DENIES ANY NEEDS. INTERLOCKER MAINTAINER AT BEDSIDE GETTING VITAL SIGNS. CALL LIGHT IN REACH, NAD NOTED, WILL CONTINUE TO MONITOR.
--- NOTE | 2017-04-05 16:35 | NUR ---
CALLED [facility], SPOKE WITH RANJIT SOOD NURSE, WHO WILL BE TAKING CARE OF PT. 1644-CALLED [facility] AND SPOKE WITH WANDA, STATED IT WILL BE ABOUT 45MIN TO 1HR BEFORE THEY CAN PICK PT UP.
--- NOTE | 2017-04-05 17:14 | NUR ---
PROVIDED VERBAL AND WRITTEN DISCHARGE INSTRUCTIONS TO PT. PT VERBALIZED UNDERSTANDING REGARING DISCHARGE TEACHING, D/C LEFT FA IV, TIP INTACT. PT DENIES ANY NEEDS AT THIS TIME. CALL LIGHT IN REACH, NAD NOTED, WILL CONTINUE TO MONITOR.
--- NOTE | 2017-04-05 19:23 | NUR ---
PT TAKEN VIA EMS FOR D/C TO [facility].
== END 2017-04-05 19:24 | disposition home health service (06) ==
LOC: D.ER 13:19 → OBSVTIME 20:39 → D.M2 20:39
PROVIDERS: Emergency Medicine; Internal Medicine Nephrology; ADMIT Emergency Medicine
DX: N28.9 Disorder of kidney and ureter, unspecified (principal); E11.22 Type 2 diabetes mellitus with diabetic chronic kidney disease; I13.0 Hypertensive heart and chronic kidney disease with heart failure and stage 1 through stage 4 chronic kidney disease, or unspecified chronic kidney disease; N18.3 Chronic kidney disease, stage 3 (moderate); I50.9 Heart failure, unspecified; Z95.0 Presence of cardiac pacemaker; I08.2 Rheumatic disorders of both aortic and tricuspid valves; D63.1 Anemia in chronic kidney disease; E78.5 Hyperlipidemia, unspecified; E03.9 Hypothyroidism, unspecified; J18.9 Pneumonia, unspecified organism; G89.4 Chronic pain syndrome; W06.XXXA Fall from bed, initial encounter